=== PATIENT | male | born 1965 | race Caucasian/White ===

== ENCOUNTER 2018-07-17 11:06 | Emergency (ER) | payer SELFPAY ==
[~2018-07-17] VITALS: Ht 170.2 cm; Wt 75.0 kg
[2018-07-18 01:15] VITALS: BP 129/84
== END 2018-07-17 20:58 | disposition home or self-care (01) ==
LOC: ER 11:06
DX: K40.90 Unilateral inguinal hernia, without obstruction or gangrene, not specified as recurrent (principal)
CPT/HCPCS: 99283